=== PATIENT | male | born 1995 | race Caucasian/White ===

== ENCOUNTER 2017-12-24 11:23 | Emergency (ER) | payer BC ==
[~2017-12-24] VITALS: Ht 172.7 cm; Wt 81.7 kg
[2017-12-24] MEDS ORDERED: SERT100 PO (11:32)
[2017-12-24] MEDS ORDERED: LORA1 PO (11:32)
[2017-12-24 12:15] LABS: BASOPHILS ABSOLUTE AUTO 0.05 K/mm3 (0.00-0.23); BASOPHILS PERCENT AUTO 0 % (0-2); EOSINOPHILS ABSOLUTE AUTO 0.17 K/mm3 (0.00-0.68); EOSINOPHILS PERCENT AUTO 1 % (0-6); Hematocrit 45.5 % (37.0-53.0); Hemoglobin 15.6 g/dL (13.5-17.5); IMMATURE GRAN ABSOLUTE AUTO 0.03 K/mm3 (0.00-0.10); IMMATURE GRAN PERCENT AUTO 0 % (0-1); LYMPHOCYTES ABSOLUTE AUTO 1.54 K/mm3 (0.84-5.20); LYMPHOCYTES PERCENT AUTO 13 % (21-46); MONOCYTES ABSOLUTE AUTO 0.91 K/mm3 (0.16-1.47); MONOCYTES PERCENT AUTO 8 % (4-13); Mean Corpuscular HGB Conc 34.3 g/dL (31.5-36.5); Mean Corpuscular Volume 88 fL (80-100); Mean Platelet Volume 8.6 fL (9.1-12.4); NEUTROPHILS ABSOLUTE AUTO 9.18 K/mm3 (1.96-9.15); NEUTROPHILS PERCENT AUTO 77 % (41-73); Platelet Count 239 K/mm3 (150-400); RDW Coefficient Variation 13.1 % (11.7-14.2); White Blood Cell Count 11.88 K/mm3 (4.00-11.30)
[2017-12-24 13:21] LABS: Source, Urine Voided
[2017-12-24 13:25] LABS: Bilirubin, Urine Neg (Neg); Blood, Urine Neg (Neg); Glucose Qualitative, Urine Neg (Neg); Ketones, Urine Neg (Neg); Leukocyte Esterase, Urine Neg (Neg); Nitrite, Urine Neg (Neg); Protein, Urine Neg (Neg); Specific Gravity, Urine 1.015 (1.003-1.022); Urobilinogen, Urine NORM (Normal)
[2017-12-24 13:39] LABS: Appearance, Urine Clear (Clear); Color, Urine Yellow (P-Yellow)
[2017-12-24 14:18] LABS: Alanine Aminotransfer (ALT/SGP 41 U/L (12-78); Albumin, Blood 3.8 g/dL (3.4-5.0); Albumin/Globulin Ratio 0.9 (0.8-1.8); Alk Phos 124 U/L (50-136); Anion Gap 8 mmol/L (6-16); Aspartate Aminotrans (AST/SGOT 26 U/L (12-37); Bilirubin, Total 0.5 mg/dL (0.1-1.0); Blood Urea Nitrogen 7 mg/dL (8-24); Bun/Creatinine Ratio 9.9 (12.0-20.0); CO2, Blood 25 mmol/L (21-32); Chloride, Blood 107 mmol/L (98-108); Creatinine, Blood 0.71 mg/dL (0.60-1.20); Globulin, Blood 4.1 g/dL (2.2-4.0); Glomerular Filtration Rate >60 (60-); Glucose, Blood 88 mg/dL (70-99); Potassium, Blood 3.9 mmol/L (3.5-5.5); Sodium, Blood 140 mmol/L (136-145); Total Protein, Blood 7.9 g/dL (6.4-8.2); Troponin I <0.015 ng/mL (0.000-0.040)
[2017-12-24] MEDS ORDERED: IBUP400 PO (14:46)
[2017-12-24] MEDS ORDERED: Veetids 500500 MG PO (14:46)
== END 2017-12-24 15:15 | disposition home or self-care (01) ==
LOC: ER 11:23
PROVIDERS: Emergency Medicine
DX: J02.0 Streptococcal pharyngitis (principal); R07.9 Chest pain, unspecified; F41.9 Anxiety disorder, unspecified; F17.200 Nicotine dependence, unspecified, uncomplicated; Z79.899 Other long term (current) drug therapy
CPT/HCPCS: 71046; 80053; 81003; 84484; 85025; 87430; 93005; 93010; 99283

== ENCOUNTER 2018-01-04 00:28 | Emergency (ER) | END 2018-01-04 02:37 | disposition home or self-care (01) ==

== ENCOUNTER 2018-02-01 21:40 | Emergency (ER) | payer BC ==
[~2018-02-01] VITALS: Ht 175.3 cm; Wt 81.7 kg
[~2018-02-01 21:40] MED LIST: IBUP400 PO; LORA1 PO; SERT100 PO; Veetids 500500 MG PO; Zoloft100 MG PO
[2018-02-01] MEDS ORDERED: NAPR500 PO (22:39)
== END 2018-02-01 22:54 | disposition home or self-care (01) ==
LOC: ER 21:40
DX: S00.83XA Contusion of other part of head, initial encounter (principal); Y04.8XXA Assault by other bodily force, initial encounter; Z79.899 Other long term (current) drug therapy; F41.9 Anxiety disorder, unspecified; F17.210 Nicotine dependence, cigarettes, uncomplicated
CPT/HCPCS: 99282